=== PATIENT | female | born 1945 | race Caucasian/White ===

== ENCOUNTER 2016-09-21 08:18 | Day surgery (SDC) | payer OTHER, MEDICARE ==
--- NOTE | ~2016-09-21 | EGD ---
EGD REPORT [facility] [address] 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 Estimated blood loss: None. Procedure: Pre-Anesthesia Assessment: - ASA Grade Assessment: II - A patient with mild systemic disease. After obtaining informed consent, the endoscope was passed under direct vision. Throughout the procedure, the patient's blood pressure, pulse, and oxygen saturations were monitored continuously. The GIF [id number] was introduced through the mouth, and advanced to the second part of duodenum. The upper GI endoscopy was accomplished without difficulty. The patient tolerated the procedure well. Findings: The esophagus and gastroesophageal junction were examined with white light. Benson's esophagus was present. Scattered islands of salmon-colored mucosa were present at 38 cm. The maximum longitudinal extent of these esophageal mucosal changes was 0.5 cm in length. Biopsies were taken with a cold forceps for histology. Verification of patient identification for the specimen was done. Estimated blood loss was minimal. The exam of the esophagus was otherwise normal. A few small sessile polyps with no stigmata of recent bleeding were found in the gastric body. Biopsies were taken with a cold forceps for histology. Verification of patient identification for the specimen was done. Estimated blood loss was minimal. The exam of the stomach was otherwise normal. The cardia and gastric fundus were normal on retroflexion. A small hiatus hernia was present. The examined duodenum was normal. Impression: - Benson's esophagus. Biopsied. - A few gastric polyps. Biopsied. - Hiatus hernia. EGD REPORT [address] [address] NAME: MARCELLUS RIVERA : [birth year] STATUS : REG [facility] [place] PAT#: [id number] AGE: 70 ADM/REG DATE : 09/21/16 MR#: [id number] REPORT SERV DATE: 09/21/16 DICTATED BY: TARSHA WARD DATE: 09/21/16 REPORT STATUS : Draft TRANSCRIBED BY: [employer] DATE: 09/21/16 - Normal examined duodenum. Recommendation: - Patient has a contact number available for emergencies. The signs and symptoms of potential delayed complications were discussed with the patient. Return to normal activities tomorrow. Written discharge instructions were provided to the patient. - Return to previous diet. - Continue present medications. - Await pathology results. - Repeat the upper endoscopy for surveillance based on pathology results. Procedure Code(s): --- Professional --- 89275, Esophagogastroduodenoscopy, flexible, transoral; with biopsy, single or multiple Diagnosis Code(s): --- Professional --- K22.70, Benson's esophagus without dysplasia K31.7, Polyp of stomach and duodenum K44.9, Diaphragmatic hernia without obstruction or gangrene CPT copyright 2013 [employer]. All rights reserved. The codes documented in this report are preliminary and upon coffee taster review may be revised to meet current compliance requirements. TARSHA WARD, 09/21/2016 10:16 AM Number of Addenda: 0 Note Initiated On: 09/21/2016 9:37 AM Scope Withdrawal Time 0 hours 0 minutes 0 seconds [address] [id number]
--- NOTE | ~2016-09-21 | EGD ---
EGD REPORT [facility] [address] [address] NAME: MARCELLUS RIVERA : [birth year] STATUS : REG [facility]#: [id number] AGE: 70 ADM/REG DATE : 09/21/16 MR#: [id number] REPORT SERV DATE: 09/21/16 DICTATED BY: TARSHA WARD DATE: 09/21/16 REPORT STATUS : Draft TRANSCRIBED BY: [employer] DATE: 09/21/16 [facility] Center Patient Name: Marcellus Rivera Date of : 1945 Attending MD: TARSHA WARD, Procedure Date No Time: 09/21/2016 Procedure: Colonoscopy Indications: High risk colon cancer surveillance: Personal history of colonic polyps Referring MD: REZA AMADOR Medicines: Monitored Anesthesia Care Complications: No immediate complications. Estimated blood loss: None. Procedure: Pre-Anesthesia Assessment: - ASA Grade Assessment: II - A patient with mild systemic disease. After I obtained informed consent, the scope was passed under direct vision. Throughout the procedure, the patient's blood pressure, pulse, and oxygen saturations were monitored continuously. The CF [id number] was introduced through the anus and advanced to the cecum, identified by appendiceal orifice and ileocecal valve. The colonoscopy was performed without difficulty. The patient tolerated the procedure well. The quality of the bowel preparation was adequate. Findings: The perianal and digital rectal examinations were normal. Internal hemorrhoids were found during retroflexion and were Grade I (internal hemorrhoids that do not prolapse). The exam was otherwise without abnormality on direct and retroflexion views. Impression: - Internal hemorrhoids. - The examination was otherwise normal on direct and retroflexion views. Recommendation: - Patient has a contact number available for emergencies. The signs and symptoms of potential delayed complications were discussed with the patient. Return to normal activities tomorrow. Written discharge instructions were provided to the patient. - Return to previous diet. - Continue present medications. - Repeat colonoscopy in 5 years for surveillance. EGD REPORT [facility] [address] [place] [address] [place]. [address] NAME: MARCELLUS RIVERA : [birth year] STATUS : REG [facility]#: [id number] AGE: 70 ADM/REG DATE : 09/21/16 MR#: [id number] REPORT SERV DATE: 09/21/16 DICTATED BY: TARSHA WARD DATE: 09/21/16 REPORT STATUS : Draft TRANSCRIBED BY: [employer] DATE: 09/21/16 Procedure Code(s): --- Professional --- 32228, Colonoscopy, flexible, proximal to splenic flexure; diagnostic, with or without collection of specimen(s) by brushing or washing, with or without colon decompression (separate procedure) Diagnosis Code(s): --- Professional --- K64.0, First degree hemorrhoids Z86.010, Personal history of colonic polyps CPT copyright 2013 [employer]. All rights reserved. The codes documented in this report are preliminary and upon architectural design lecturer review may be revised to meet current compliance requirements. TARSHA WARD, 09/21/2016 10:17 AM Number of Addenda: 0 Note Initiated On: 09/21/2016 9:41 AM Scope Withdrawal Time 0 hours 14 minutes 10 seconds [address] [place] [address]
[~2016-09-21 08:18] MED LIST: ASAB PO; CALTRA600D PO; HYZAAR1 TAB PO; MAGOX4 PO; PRILO PO; VITAMIN D1000 UNI1 PO; VITAMIN D31000 UNIT PO; VITC500 PO
== END 2016-09-21 23:59 | disposition home or self-care (01) ==
LOC: DMU 08:18
PROVIDERS: Internal Medicine Gastroenterology
PROC: 0DB58ZX Excision of Esophagus, Via Natural or Artificial Opening Endoscopic, Diagnostic (ICD-10-PCS; 2016-09-21)
PROC: 0DJD8ZZ Inspection of Lower Intestinal Tract, Via Natural or Artificial Opening Endoscopic (ICD-10-PCS; principal; 2016-09-21 08:00)
PROC: 0DB68ZX Excision of Stomach, Via Natural or Artificial Opening Endoscopic, Diagnostic (ICD-10-PCS; 2016-09-21 08:00)
DX: K64.0 First degree hemorrhoids (principal); K31.7 Polyp of stomach and duodenum; K44.9 Diaphragmatic hernia without obstruction or gangrene; K21.9 Gastro-esophageal reflux disease without esophagitis; K22.70 Barrett's esophagus without dysplasia; I10 Essential (primary) hypertension; Z86.010 Personal history of colon polyps; Z88.5 Allergy status to narcotic agent; Z79.82 Long term (current) use of aspirin; Z79.899 Other long term (current) drug therapy; Z90.49 Acquired absence of other specified parts of digestive tract; Z90.89 Acquired absence of other organs; Z90.710 Acquired absence of both cervix and uterus; Z98.41 Cataract extraction status, right eye; Z98.42 Cataract extraction status, left eye; Z98.890 Other specified postprocedural states
CPT/HCPCS: 88305